=== PATIENT | male | born 1995 | race Caucasian/White ===

== ENCOUNTER 2021-01-04 16:00 | Emergency (ER) | payer OTHER, MEDICAID, SELFPAY ==
[2021-01-04 16:05] VITALS: BP 142/96; PULSE 78; RESP 16; TEMP 36.1; O2SAT 99; BMI 25.7
[2021-01-04 16:42] LABS: COVID19 -Nasal RAPID Negative (Negative)
--- NOTE | 2021-01-04 17:24 | ED_ITS ---
HPI - URI/Sore Throat <Sami Mane PA-C - Last Filed: 01/04/21 18:21> General Chief Complaint: Upper Respiratory Symptoms Stated Complaint: MIGHT OF BEEN IN CONTACT SOMEONE WITH COVID Time Seen by Provider: 01/04/21 17:16 Source: patient Mode of arrival: Ambulatory History of Present Illness HPI Narrative: Patient is a 25-year-old male presenting to the emergency department today out of concern for a recent known exposure to COVID-19. Patient states that he was with a friend on 01/01/2021 who had exposure, he states that the friend that he was with is fully vaccinated and has not experience symptoms, any he states that he himself is fully vaccinated and is currently asymptomatic. He explains that he has an elderly grandmother that he interacts with frequently and wanted to rule out COVID-19. He denies fever, chills, chest pain, shortness of breath, cough, abdominal pain, nausea, vomiting, diarrhea, myalgias, lightheadedness, and nausea. No other concerns voiced at this time. Related Data Home Medications Medication Instructions Recorded Confirmed No Known Home Medications 11/09/20 11/09/20 Allergies Allergy/AdvReac Type Severity Reaction Status Date / Time No Known Drug Allergies Allergy Unverified 11/09/20 14:49 Review of Systems <Sami Mane PA-C - Last Filed: 01/04/21 18:21> Constitutional Constitutional: Denies chills, Denies fever(s), Denies lethargy and Denies wea kness ENT Ears, Nose, Mouth, and Throat: Denies change in voice, Denies neck pain and Denies sore throat Cardiovascular Cardiovascular: Denies chest pain, Denies irregular heart rhythm, Denies lightheadedness, Denies palpitations, Denies dyspnea, Denies dyspnea on exertion and Denies orthopnea Respiratory Respiratory: Denies cough, Denies dyspnea, Denies dyspnea on exertion and Denies wheezing Gastrointestinal Gastrointestinal: Denies abdominal pain, Denies change in bowel habits, Denies diarrhea, Denies nausea and Denies vomiting Musculoskeletal Musculoskeletal: Denies neck pain Integumentary/Breasts Skin/Breast: Denies pruritus, Denies erythema, Denies rash and Denies wounds Neurologic Neurologic: Denies weakness Endocrine Endocrine: Denies palpitations Allergic/Immunologic Allergic/Immunologic: Denies wheezing Patient History <Sami Mane PA-C - Last Filed: 01/04/21 18:21> Social History Smoking Status: Smoker, status unknown Smoking Status: Smoker, status unknown Substance Use Type: does not use Exam <Sami Mane PA-C - Last Filed: 01/04/21 18:21> Narrative Exam Narrative: GENERAL: 25 year old patient appears stated age. Well-developed patient, in no acutedistress. HEAD: Atraumatic. Normocephalic. EYES: Pupils equal round and reactive. Extraocular motions intact. No scleral icterus. No injection or drainage. ENT: Nose without bleeding, purulent drainage. Throat without erythema, tonsi llar hypertrophy or exudate. Airway patent. NECK: Trachea midline. Non tender CARDIOVASCULAR: Regular rate and rhythm without murmurs, gallops, or rubs. RESPIRATORY: Clear to auscultation. Breath sounds equal bilaterally. No wheezes, rales, or rhonchi. GASTROINTESTINAL: Abdomen soft, non-tender, nondistended. EXTREMITIES: No edema or joint tenderness. BACK: Nontender without deformity or crepitance. No flank tenderness. NEURO: AOx3. SKIN: No rash or erythema of visible areas Initial Vital Signs Initial Vital Signs: Vital Signs Temperature 97.0 F L 01/04/21 16:05 Pulse Rate 78 01/04/21 16:05 Respiratory Rate 16 01/04/21 16:05 Blood Pressure 142/96 H 01/04/21 16:05 Pulse Oximetry 99 01/04/21 16:05 <Jj Singh DO - Last Filed: 01/04/21 18:23> Initial Vital Signs Initial Vital Signs: Vital Signs Temperature 97.0 F L 01/04/21 16:05 Pulse Rate 78 01/04/21 16:05 Respiratory Rate 16 01/04/21 16:05 Blood Pressure 142/96 H 01/04/21 16:05 Pulse Oximetry 99 01/04/21 16:05 Course <Sami Mane PA-C - Last Filed: 01/04/21 18:21> Course Course Narrative: Patient is a 25-year-old male presenting to the emergency department today out of concern for a recent known exposure to COVID-19. Orders Ordered: ED Orders 01/04/21 16:00 COVID19 -Nasal swab/Pre-Proc Stat Vital Signs Vital signs: Vital Signs - 8 hr 01/04/21 16:05 Temperature 97.0 F L Pulse Rate 78 Respiratory Rate 16 Blood Pressure 142/96 H Pulse Oximetry 99 <Jj Singh DO - Last Filed: 01/04/21 18:23> Orders Ordered: ED Orders 01/04/21 16:00 COVID19 -Nasal swab/Pre-Proc Stat Vital Signs Vital signs: Vital Signs - 8 hr 01/04/21 16:05 Temperature 97.0 F L Pulse Rate 78 Respiratory Rate 16 Blood Pressure 142/96 H Pulse Oximetry 99 MDM - URI/Sore Throat <Sami Mane PA-C - Last Filed: 01/04/21 18:21> Lab Data Labs: Lab Results 01/04/21 Range/Units 16:00 SARS-CoV-2 (PCR) Negative (Negative) MDM Narrative Medical decision making narrative: Patient is a 25-year-old male presenting to the emergency department today out of concern for a recent known exposure to COVID-19. To consider COVID-19 versus viral upper respiratory infection. Overall history and physical examination are reassuring. Patient is asymptomatic and his vitals overall are reassuring. COVID PCR test in the emergency department resulted negative. Patient was informed of his lab results. He explains that he was not experiencing symptoms prior to arriving to the emergency department and simply wanted to rule out COVID-19. I instructed the patient to return to the emergency department if he begins to experience f ever, chills, shortness of breath, or any other concerning symptoms. Strict return precautions discussed with patient prior to discharge. <Jj Singh DO - Last Filed: 01/04/21 18:23> Lab Data Labs: Lab Results 01/04/21 Range/Units 16:00 SARS-CoV-2 (PCR) Negative (Negative) Discharge Plan Departure Patient Disposition: Home Clinical Impression: COVID-19 ruled out Instructions: Can COVID-19 be prevented? Activity Restrictions/Additional Instructions: *You have been diagnosed with COVID-19 rule out *What to do: *Please continue to take your regular medications as directed. [ ] New medication prescriptions sent to your pharmacy: [ ] [ ] New medication written as a paper prescription [X] No new medications given *Please follow up with your primary care provider in 2-3 days, call for an appointment. Let them know you were seen in the Emergency Department and that we ask that you be seen in follow up. We will electronically transmit a record of today's note if your PCP is in our system. *If you do not have a primary care provider please contact the [facility] Resource line at [phone]. They will ask some questions about your medical history and help get you set up with a doctor in the community. *Return to Emergency Department if you should have any new, worsening or concerning symptoms, such as fever greater than 101 F, shaking chills, worsening shortness of breath, worsening cough, myalgias, persistent vomiting, or other bothersome symptoms. Prescriptions: No Action No Known Home Medications RF: 0 <Jj Singh, DO - Last Filed: 01/04/21 18:23> [facility]: Dr Singh Co-Sign Statement: I was available for consultation during this patient's emergency department visit. This chart is signed by myself for administrative purposes only. I did not have direct contact with this patient during this visit. They were seen independently by the APC.
== END 2021-01-04 17:46 | disposition home or self-care (01) ==
PROVIDERS: Emergency Medicine; Emergency Provider Physician Assistant
DX: Z20.822 Contact with and (suspected) exposure to COVID-19 (principal)
CPT/HCPCS: 87635; 99281; 99282; C9803

== ENCOUNTER 2024-06-30 12:54 | Emergency (ER) | payer OTHER, SELFPAY ==
[2024-06-30 13:06] VITALS: BP 169/88; PULSE 82; RESP 18; TEMP 36.6; O2SAT 100; BMI 21.2
[2024-06-30 17:57] VITALS: BP 144/86; PULSE 100; O2SAT 98
--- NOTE | 2024-06-30 18:26 | ED.HA ---
HPI - Headache General Chief Complaint: Headache Stated Complaint: Daily Migraines since March Time Seen by Provider: 06/30/24 18:15 Mode of arrival: Ambulatory History of Present Illness HPI Narrative: 28-year-old male history of Raynaud's presents with daily headaches since March described as diffuse usually starts on the left side and migrates to the right front and radiates all the way to the back. Patient was seen by PCP in walk-in clinic on a few occasions given Flonase and told to take Tylenol as needed for the pain. Initially Flonase worked but started to wear off and continues to have daily headaches. Light and sound do not trigger his headaches or migraines he even tried to have asleep regular sleep cycle stopped going to the gym for a week thinking that this could be also exertional and also started journaling to see which days were better than others. He can he also started taking multivitamin and magnesium to see if it would help but so far he continues to have daily headaches that would last for hours without any significant relief of his symptoms. Patient denies fever chills nausea vomiting diarrhea cough runny nose sore throat sick contacts stiff neck rash. Other than what is stated 14 point review of system is negative. Related Data Previous Rx's Medication Instructions Recorded amoxicillin 875 mg-potassium 1 tab PO Q12H #14 tabs 06/30/24 clavulanate 125 mg tablet Allergies Allergy/AdvReac Type Severity Reaction Status Date / Time No Known Drug Allergies Allergy Verified 06/18/24 16:33 Review of Systems Review of Systems ROS Unobtainable: All systems reviewed & are unremarkable except as noted in HPI and below Patient History Medical History (Updated 06/30/24 @ 20:27 by Aren Haley DO) Raynaud disease Surgical History (Updated 11/09/23 @ 10:55 by Thom Quinteros RN) Hx of bilateral mastectomy Social History Smoking Status: Never smoker Smoking Status: Never smoker Exam Narrative Exam Narrative: GENERAL: [28] year old patient appears stated age. Well-developed patient, in mild distress. HEAD: Atraumatic. Normocephalic. EYES: Pupils equal round and reactive. Extraocular motions intact. No scleral icterus. No injection or drainage. ENT: Nose without bleeding, purulent drainage. Throat without erythema, tonsillar hypertrophy or exudate. Airway patent. b/l max sinus TTP NECK: Trachea midline. Non tender CARDIOVASCULAR: Regular rate and rhythm without murmurs, gallops, or rubs. RESPIRATORY: Clear to auscultation. Breath sounds equal bilaterally. No wheezes, rales, or rhonchi. GASTROINTESTINAL: Abdomen soft, non-tender, nondistended. EXTREMITIES: No edema or joint tenderness. BACK: Nontender without deformity or crepitance. No flank tenderness. NEURO: AOx3. GCS 15 nonfocal neuro exam/ neg romberg SKIN: No rash or erythema of visible areas Initial Vital Signs Initial Vital Signs: Vital Signs Temperature 98 F 06/30/24 13:06 Pulse Rate 82 06/30/24 13:06 Respiratory Rate 18 06/30/24 13:06 Blood Pressure 169/88 H 06/30/24 13:06 Pulse Oximetry 100 06/30/24 13:06 Oxygen Delivery Method Room Air 06/30/24 13:06 Course Orders Ordered: ED Orders 06/30/24 18:25 CT head/brain wo con Stat 06/30/24 18:45 CBC Auto Diff [Complete Blood Count AUTO DIFF] Stat CMP [Comprehensive Metabolic Panel] Stat Vital Signs Vital signs: Vital Signs - 8 hr 06/30/24 13:06 06/30/24 17:57 06/30/24 17:57 Temperature 98 F Pulse Rate 82 100 H Respiratory Rate 18 Blood Pressure 169/88 H 144/86 H Pulse Oximetry 100 98 Oxygen Delivery Method Room Air MDM - Headache Lab Data 06/30/24 18:45 06/30/24 18:45 Labs: Lab Results 06/30/24 Range/Units 18:45 WBC 8.0 (4.5-11.0) X10^3/uL RBC 5.20 (4.5-5.9) X10^6/uL Hgb 16.5 (13.5-17.5) g/dL Hct 46.7 (41-53) % MCV 89.9 (80-100) fL MCH 31.8 (26-34) PG MCHC 35.4 (30-36) % RDW 11.6 (11.6-14.8) % Plt Count 183 (150-400) X10^3/uL Neut % (Auto) 74.2 (50-75) % Lymph % (Auto) 16.6 L (25-40) % [place] % (Auto) 8.2 (3-14) % Eos % (Auto) 0.5 L (2-4) % Baso % (Auto) 0.5 (0-2) % Neut # (Auto) 6000 (8387-9203) /uL Lymph # (Auto) 1300 (5023-3314) /uL [place] # (Auto) 700 (0-900) /uL Eos # (Auto) 0 (0-450) /uL Baso # (Auto) 0 (0-100) /uL Sodium 139 (137-145) mmol/L Potassium 4.0 (3.4-5.1) mmol/L Chloride 103 (98-107) mmol/L Carbon Dioxide 27 (22-32) mmol/L BUN 11 (9-20) mg/dL Creatinine 0.67 (0.66-1.25) mg/dL Estimated GFR > 60 (>60) mL/min BUN/Creatinine Ratio 16.4 (6-22) Glucose 97 (70-99) mg/dL Calcium 9.4 (8.4-10.2) mg/dL Total Bilirubin 1.5 H (0.2-1.3) mg/dL AST 29 (17-59) IU/L ALT 24 (<50) IU/L Alkaline Phosphatase 72 (38-126) U/L Total Protein 7.7 (6.3-8.2) g/dL Albumin 4.6 (3.5-5.0) g/dL Globulin 3.1 (1.7-4.1) g/dL Albumin/Globulin Ratio 1.5 (1.0-2.8) Imaging Data CT scan - head: Radiologist's Impression: [address] [address] [address] Scan Report Signed Patient: Emir Haywood MR#: [id number] : 1995 Acct:[id number] Age/Sex: 28 / M Date of Service: 06/30/24 Loc: ED Accession Number: [id number] Procedure: CT head/brain wo con Ordering Provider: Aren Haley D.O. PROCEDURE: CT HEAD/BRAIN WO CON INDICATIONS: daily headache since Mar TECHNIQUE: Noncontrast 4.5 mm thick angled axial sections acquired from the foramen magnum to the vertex, with coronal and sagittal reformats. For radiation dose reduction, the following was used: automated exposure control, adjustment of mA and/or kV according to patient size. COMPARISON: None. FINDINGS: Image quality: Diagnostic. CSF spaces: Basal cisterns are patent. No extra-axial fluid collections. Ventricles are normal in size and shape. Brain: No midline shift. No intracranial mass effect or hemorrhage. Razo-white matter interface is normal. Skull and face: Calvarium and visualized facial bones are intact, without suspicious lesions. Sinuses: Complete opacification of the left maxillary sinus, bilateral anterior ethmoid air cells and bilateral frontal sinuses. The mastoid air cells are clear. IMPRESSION: No acute intracranial pathology. Significant sinusitis as above. Dictated by: Willis Cunningham M.D. on 06/30/2024 at 19:36 MDM Narrative Medical decision making narrative: All lab work vital signs nurse triage note medication list imaging studies in all previous ER visits reviewed. Patient given Augmentin here and on DC home. Differential diagnosis include migraine, tumor, subarachnoid hemorrhage, sinusitis, viral infection. Return with new or worsening symptoms follow up with PCP in 1-2 weeks if no improvement in symptoms. Discharge Plan Departure Patient Disposition: Home Clinical Impression: Acute bacterial sinusitis Instructions: DI for Sinusitis Activity Restrictions/Additional Instructions: Return with new or worsening symptoms. Take your medicines as directed. Follow up PCP in 1-2 weeks if no improvement in symptoms. Prescriptions: New amoxicillin-pot clavulanate 875-125 mg tablet 1 tab PO Q12H Qty: 14 0RF Referrals: Miscellaneous,MD Greg [Primary Care Provider] - Stand Alone Forms: Patient Portal/API/Survey
[2024-06-30 19:07] LABS: Alanine Aminotransferase 24 IU/L (<50); Albumin 4.6 g/dL (3.5-5.0); Albumin Globulin Ratio 1.5 (1.0-2.8); Alkaline Phosphatase 72 U/L (38-126); Aspartate Aminotransferase 29 IU/L (17-59); BUN Creatinine Ratio 16.4 (6-22); Bilirubin Total 1.5 mg/dL (0.2-1.3); Blood Urea Nitrogen 11 mg/dL (9-20); Calcium 9.4 mg/dL (8.4-10.2); Carbon Dioxide 27 mmol/L (22-32); Chloride 103 mmol/L (98-107); Estimated Glomerular Filt Rate > 60 mL/min (>60); Globulin 3.1 g/dL (1.7-4.1); Glucose 97 mg/dL (70-99); HEMOLYSIS < 15 (0-50); Sodium 139 mmol/L (137-145); Total Protein 7.7 g/dL (6.3-8.2)
[2024-06-30 19:12] LABS: Add Manual Diff / Slide Review NO; Basophils Absolute Auto 0 /uL (0-100); Basophils Percent Auto 0.5 % (0-2); Eosinophils Absolute Auto 0 /uL (0-450); Eosinophils Percent Auto 0.5 % (2-4); Hematocrit 46.7 % (41-53); Hemoglobin 16.5 g/dL (13.5-17.5); Lymphocytes Absolute Auto 1300 /uL (1100-4500); Lymphocytes Percent Auto 16.6 % (25-40); Mean Corpuscular HGB Conc 35.4 % (30-36); Mean Corpuscular Hemoglobin 31.8 PG (26-34); Mean Corpuscular Volume 89.9 fL (80-100); Monocytes Absolute Auto 700 /uL (0-900); Monocytes Percent Auto 8.2 % (3-14); Neutrophils Absolute Auto 6000 /uL (1500-7000); Neutrophils Percent Auto 74.2 % (50-75); Platelet Count 183 X10^3/uL (150-400); Red Cell Distribution Width 11.6 % (11.6-14.8)
[2024-06-30 20:26] VITALS: BP 145/84; PULSE 88; RESP 18; O2SAT 99
[2024-06-30 20:27] VITALS: BP 145/84; PULSE 76; O2SAT 96
[2024-06-30] MEDS: AMOXICILLIN/CLAV 875/125 MG 1 TAB PO (20:30)
== END 2024-06-30 20:34 | disposition home or self-care (01) ==
PROVIDERS: Emergency Provider Family Medicine
DX: J01.80 Other acute sinusitis (principal)
CPT/HCPCS: 70450; 80053; 85025; 99283; 99284